=== PATIENT | male | born 1950 ===

== ENCOUNTER → 2024-04-17 08:22 | Outpatient (BNVA) | payer MEDICAID, SELFPAY | PROVIDERS: PCP Family Medicine; Referring Provider Family Medicine; Visit Provider Nurse Practitioner Gerontology | DX: R33.9 Retention of urine, unspecified (principal); N31.9 Neuromuscular dysfunction of bladder, unspecified; N40.1 Benign prostatic hyperplasia with lower urinary tract symptoms; N13.8 Other obstructive and reflux uropathy; R39.9 Unspecified symptoms and signs involving the genitourinary system; R31.9 Hematuria, unspecified ==

== ENCOUNTER 2024-04-17 12:33 | Outpatient (CLI) | payer OTHER, MEDICAID, SELFPAY ==
[2024-04-17 10:47] LABS: CREATININE 1.8 mg/dL (0.70-1.30); Estimated GFR 38.77 (mL/min/1.73m2)
[2024-04-17 18:39] LABS: PSA, Diagnostic 1.6 ng/mL (<=6.5)
== END 2024-04-17 12:34 | disposition home or self-care (01) ==
LOC: LBO 12:34
PROVIDERS: PCP Family Medicine; Visit Provider Nurse Practitioner Gerontology
DX: R31.9 Hematuria, unspecified (principal); R33.9 Retention of urine, unspecified; N31.9 Neuromuscular dysfunction of bladder, unspecified; N40.1 Benign prostatic hyperplasia with lower urinary tract symptoms; N13.8 Other obstructive and reflux uropathy
CPT/HCPCS: 36415; 82565; 84153